=== PATIENT | male | born 1965 | race Caucasian/White ===

== ENCOUNTER → 2024-03-13 | Outpatient (CLI) | payer BC, SELFPAY ==
[2024-03-13 12:05] LABS: Basophils # (Auto) 0.1 Thou/mm3 (0.0-0.2); Basophils % (Auto) 2 % (0-2.5); Eosinophils # (Auto) 0.3 Thou/mm3 (0.0-0.5); Eosinophils % (Auto) 5 % (0-10); Hematocrit 48.4 % (41.0-53.0); Hemoglobin 16.9 g/dL (13.5-16.0); Immature Granulocytes % (Auto) 0 % (0-0); Immature Granulocytes Auto 0.02 Thou/mm3 (0.00-0.00); Lymphocytes # (Auto) 1.7 Thou/mm3 (1.0-4.8); Lymphocytes % (Auto) 32 % (10-50); Mean Corpuscular HGB Conc 34.9 g/dl (31.0-37.0); Mean Corpuscular Hemoglobin 31.9 pg (25.0-35.0); Mean Corpuscular Volume 92 fL (80-100); Monocytes # (Auto) 0.5 Thou/mm3 (0.0-0.8); Monocytes % (Auto) 9 % (0-12); Neutrophils # (Auto) 2.8 Thou/mm3 (1.8-7.7); Neutrophils % (Auto) 52 % (37-80); Nucleated Red Blood Cell % 0 /100 WBC (0); Platelet Count 258 Thou/mm3 (140-440); RDW Standard Deviation 48.6 fL (35.1-43.9); Red Blood Count 5.29 Miln/mm3 (4.50-5.90); White Blood Count 5.2 Thou/mm3 (3.8-10.6)
[2024-03-13 12:20] LABS: Glucose Estimated Average 94 mg/dL (80-131); Hemoglobin A1C 4.9 % Hgb (4.8-6.0)
[2024-03-13 12:30] LABS: Alanine Aminotransferase 49 U/L (10-49); Albumin, Serum 4.6 gm/dL (3.5-5.0); Albumin/Globulin Ratio 2.2 (1.2-2.2); Alkaline Phosphatase 80 U/L (46-116); Anion Gap 4 (7-16); Aspartate Amino Transferase 33 U/L (0-34); BUN/Creatinine Ratio 12 Ratio (12-20); Bilirubin,Total 0.7 mg/dL (0.3-1.2); Blood Urea Nitrogen 12 mg/dL (9-23); Calcium 9.9 mg/dL (8.3-10.6); Calcium (Corrected) 9.9 mg/dL (8.5-10.1); Carbon Dioxide 28.5 mMol/L (20.0-31.0); Cardiac Risk Estimate 3.8 RATIO (4.0-6.7); Chloride 106 mMol/L (98-107); Cholesterol 188 mg/dL (132-200); Free T4 (Free Thyroxine) 1.14 ng/dL (0.89-1.76); Globulin 2.1 gm/dL (2.3-3.5); Glucose 72 mg/dL (74-106); HDL Cholesterol 49 mg/dL (40-60); LDL Cholesterol,Calculated 108 mg/dL (0-130); Osmolality,Calculated 274 (275-295); Potassium 4.1 mMol/L (3.4-5.1); Sodium 138 mMol/L (136-145); Thyroid Stimulating Hormone 0.98 uIU/mL (0.55-4.78); Total Protein 6.7 gm/dL (5.7-8.2); Triglycerides 153 mg/dL (30-150); eGFR > 60 See Note
[2024-03-23 07:23] LABS: SHBG 39 nmol/L (22-77); Testosterone, Bioavailable 64.2 ng/dL (110.0-575.0); Testosterone, Free 34.9 pg/mL (46.0-224.0); Testosterone,Total 307 ng/dL (250-1100)
== END | disposition home or self-care (01) ==
LOC: COPL 11:12
PROVIDERS: PCP Nurse Practitioner; Referring Provider Nurse Practitioner; Visit Provider Nurse Practitioner
DX: I10 Essential (primary) hypertension (principal); E29.1 Testicular hypofunction; R53.83 Other fatigue; R73.09 Other abnormal glucose
CPT/HCPCS: 36415; 80053; 80061; 82040; 83036; 84153; 84270; 84403; 84439; 84443; 85025

== ENCOUNTER → 2024-08-14 | Outpatient (CLI) | payer BC, SELFPAY ==
--- NOTE | 2024-08-14 16:18 | XR_ITS ---
Examination: Lumbar spine, 5 views Technique: Lumbar spine AP, lateral, coned lateral lower lumbar spine, bilateral obliques 5 views Exam date and time: August 14, 2024 1821 hrs. Indications: Low back pain beginning several years ago. Findings: Adequate alignment lumbar vertebral bodies on the lateral view No lumbar fracture Moderate disc narrowing L4-L5 Advanced disc narrowing L5-S1 No spondylolisthesis Impression: Advanced degenerative disc disease L5-S1
== END | disposition home or self-care (01) ==
PROVIDERS: PCP Nurse Practitioner; Referring Provider Nurse Practitioner; Visit Provider Nurse Practitioner
DX: M51.379 Other intervertebral disc degeneration, lumbosacral region without mention of lumbar back pain or lower extremity pain (principal)
CPT/HCPCS: 72110

== ENCOUNTER → 2025-02-03 | Outpatient (CLI) | payer BC, SELFPAY ==
--- NOTE | 2025-02-03 10:30 | XR_ITS ---
Examination: CT chest, without contrast. 2-D sagittal reconstructions. 2-D coronal reconstructions. 3-D reconstructions. Date and time of exam: February 13, 2025 10:52 a.m. INDICATIONS: Nicotine dependence coughing congestion 10 years, smoking history 10 years, low dose screening study CTDI: vol (mGy): 14.6 DLP: (mGycm): 594 Technique: Multiple 1.25 mm axial sections of the high-resolution noncontrast images of the thorax have been obtained. 2-D sagittal and coronal reconstructions have been obtained. 3-D reconstructions have been obtained. Low dose protocols were performed. One or more of the following dose reduction techniques were used; automated exposure control, adjustment of the mA and/or KV according to patient size, use of iterative reconstruction technique. Findings: Mild aneurysmal dilatation ascending thoracic aorta, AP dimension 4.2 cm Pulmonary artery segments are not enlarged. No paratracheal tracheobronchial or bronchopulmonary adenopathy No pneumonia, pulmonary edema, pleural disease Fatty infiltration throughout the liver, no focal liver or splenic lesions No pancreatic mass Absent gallbladder Moderate osteopenia IMPRESSION: Mild aneurysmal dilatation ascending thoracic aorta Negative for pulmonary artery hypertension No mediastinal lymphadenopathy. No pneumonia, pulmonary edema, pleural disease or pulmonary nodules
== END | disposition home or self-care (01) ==
PROVIDERS: PCP Nurse Practitioner; Referring Provider Nurse Practitioner; Visit Provider Nurse Practitioner
DX: I71.21 Aneurysm of the ascending aorta, without rupture (principal)
CPT/HCPCS: 71271

== ENCOUNTER → 2025-02-12 | Outpatient (CLI) | payer BC, SELFPAY ==
--- NOTE | 2025-02-12 08:57 | XR_ITS ---
EXAMINATION: Ultrasound abdominal aorta TECHNIQUE: Grayscale sonographic images abdominal aorta and iliac arteries Date and time: February 12, 2025, 0912 hours INDICATIONS: Smoking history 20 years, CT examination February 03, 2025 aneurysmal dilatation ascending thoracic aorta 4.2 cm FINDINGS: Transverse dimension proximal aorta 2.4 cm mid aorta 2.3 cm distal aorta 2.2 cm right iliac 1.5 cm left iliac 1.3 cm IMPRESSION: Negative for bowel aortic aneurysm
== END | disposition home or self-care (01) ==
PROVIDERS: PCP Nurse Practitioner; Referring Provider Nurse Practitioner; Visit Provider Nurse Practitioner
DX: F17.210 Nicotine dependence, cigarettes, uncomplicated (principal)
CPT/HCPCS: 76770

== ENCOUNTER 2025-03-24 08:36 | Emergency (ER) | payer BC, SELFPAY ==
[2025-03-24 08:46] VITALS: PULSE 120; O2SAT 99; BMI 28.5
[2025-03-24 08:57] VITALS: BP 114/86; PULSE 118; RESP 18; TEMP 36.9; O2SAT 96
--- NOTE | 2025-03-24 08:59 | EKG_ITS ---
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
--- NOTE | 2025-03-24 09:07 | PD.EDCHEST ---
ED Chest Pain RME/HPI General Chief Complaint: Chest Pain Stated Complaint: chest pain Time Seen by Provider: 03/24/25 08:50 Arrival date/time: 03/24/25 08:36 Limitations: no limitations RME / HPI RME / HPI narrative: 59 year old male with history of hypertension, anxiety, chronic pain presents to the ED BIBA from home for evaluation of substernal and left-sided chest pain beginning at midnight today. Described as a soreness sensation, rated as moderate. Accompanied by elevated heart rate and nausea. Reports with elevated HR in the past, he takes a small dose of Valium which provides relief. However, noted HR did not improve and chest pain remained. Per medics, on scene the patients HR was 120-130s on telemetry. Was given Aspirin, Nitro sublingual, Nitro paste, Zofran with minimal relief. Denies any leg swelling, jaw pain, or shoulder pain. Denies any diarrhea or blood in stool. Patient additionally reports he and some friends drove several hours down to [facility] for a golf tournament and had a ground level mechanical fall Saturday evening. Denied having any chest pain or shortness of breath after the fall. States he was able to play golf yesterday and yesterday they drove from [facility] back home with no complications or pain. Related Data Home Medications ?Medication ?Instructions ?Recorded ?Confirmed albuterol sulfate 90 mcg/actuation 2 puff inhalation QDAY PRN 05/15/21 12/15/21 aerosol inhaler Shortness Of Breath Or Wheezing aspirin 81 mg tablet,delayed 81 mg PO QDAY 05/15/21 12/15/21 release azelastine 137 mcg (0.1 %) nasal 1 spray intranasal QDAY 05/15/21 12/15/21 spray lisinopril 20 mg tablet 20 mg PO QDAY 05/15/21 12/15/21 nifedipine 30 mg tablet,extended 30 mg PO QDAY 05/15/21 12/15/21 release 24 hr omeprazole 40 mg capsule,delayed 40 mg PO BID 05/15/21 12/15/21 release fluticasone propionate 110 1 puff inhalation QDAY 12/18/21 12/18/21 mcg/actuation HFA aerosol inhaler (Flovent HFA) hydrocodone 10 mg-acetaminophen 1 tab PO Q6HR PRN Pain 12/18/21 12/18/21 325 mg tablet Held on 12/18/21. Instructions: Resume on 12/19/21. HOLD FOR TODAY. RESUME MED TOMORROW 12/19/21 Allergies Allergy/AdvReac Type Severity Reaction Status Date / Time erythromycin base AdvReac upset Verified 12/18/21 14:06 stomach Review of Systems Review of Systems Systems Reviewed: All systems reviewed, normal except as documented Past Medical History Past Medical History CARDIAC: Positive Cardiac Disorders, Hypercholesterolemia and Hypertension RESPIRATORY: Positive Asthma and Sleep Apnea GASTROINTESTINAL: Positive Gastrointestinal Disorders and Gastroesophageal Reflux Disease GENITOURINARY: Positive Kidney Stones OTHER HISTORY: Positive Shingles, Anesthesia Reactions and Chicken Pox Surgical History SURGICAL: Positive Abdominal Surgery, Bowel Surgery and Vasectomy Social History SMOKING STATUS: Heavy (> 1 pack/day) ED Exam General Limitations: Present no limitations General appearance: Present alert and in no apparent distress Head Head exam: Present other (There is an abrasion on the bride of nose and left cheek) Eye Eye exam: Present normal appearance, PERRL and EOMI ENT ENT exam: Present normal exam, normal oropharynx and mucous membranes moist Neck Neck exam: Present full ROM, trachea midline and other (minimal tenderness to the lateral neck ) Chest Chest inspection: Present normal inspection and symmetric chest wall rise; Absent tenderness Respiratory Respiratory exam: Present normal lung sounds bilaterally Cardiovascular Cardiovascular exam: Present regular rate, normal rhythm and normal heart sounds Abdominal Exam Abdominal exam: Present soft and normal bowel sounds; Absent distention, tenderness, guarding, rebound or rigidity Extremities Exam Extremities exam: Present normal inspection, full ROM and other (No lower extremity edema ) Back Exam Back exam: Present normal inspection and full ROM Neurological Exam Neurological exam: Present alert, oriented X3 and CN II-XII intact Psychiatric Psychiatric exam: Present normal affect and normal mood Skin Skin exam: Present warm, dry, intact and normal color Course Quality Measures none Orders Category Date Time Status CT Screening NOW Care 03/24/25 09:48 Completed EKG (ED ONLY) *Do not use* NOW Care 03/24/25 08:[address] angio chest abdomen pelvis Stat Exams 03/24/25 09:[address] cervical spine wo con Stat Exams 03/24/25 09:[address] head/brain wo con Stat Exams 03/24/25 09:47 Completed CXR [XR chest 1V] Stat Exams 03/24/25 09:47 Completed EKG (ED Only) Stat Exams 03/24/25 08:59 Draft CBC Stat Lab 03/24/25 10:19 Completed CMP [Comprehensive Metabolic Panel] Stat Lab 03/24/25 10:19 Completed Drug Screen,Urine Stat Lab 03/24/25 11:40 Completed Free T4 (Free Thyroxine) Stat Lab 03/24/25 10:19 Completed Lipase Stat Lab 03/24/25 10:19 Completed TSH [Thyroid Stimulating Hormone] Stat Lab 03/24/25 10:19 Completed Troponin I Stat Lab 03/24/25 10:19 Completed Troponin I Stat Lab 03/24/25 12:09 Completed Morphine* Inj Med 03/24/25 09:49 Discontinued 2 mg IVP STAT STA Ringers Lactated 1000 ml [Lactated Ringers] 1,000 ml Med 03/24/25 09:49 Discontinued IV 999 mls/hr TET,DIP/PERT AC (Adult)-Tdap [Boostrix Adult (Tdap) Med 03/24/25 09:48 Discontinued Vacc] 0.5 ml IMI .ONCE ONE Vital Signs Vital signs: Vital Signs Temperature 98.5 F 03/24/25 08:57 Pulse Rate 118 H 03/24/25 08:57 Respiratory Rate 18 03/24/25 08:57 Blood Pressure 114/86 H 03/24/25 08:57 Pulse Oximetry (%) 96 03/24/25 08:57 Oxygen Delivery Method Room Air 03/24/25 08:57 Pulse ox is 96% on room air which is adequate. Chest Pain MDM Narrative MDM Narrative:: Patient is a 59-year-old male with medical history notable for hypertension, GERD, this in the emergency department concerns for chest pain, feeling off. Vital signs and exam as listed. Concern for ACS arrhythmia electrolyte abnormality viral syndrome pneumonia pulmonary embolus dissection among others. Patient also fell and hit his head a couple days ago, has an abrasion. Patient is GCS 15, no focal neurodeficits, no concern for intracranial trauma. Ordered CT of the brain, cervical spine angio chest abdomen pelvis. EKG and chest x-ray offered medication for symptom relief. Labs without acute hematologic or significant metabolic abnormality patient does have an AST of 51 ALT of 52, lipase not elevated thyroid studies unremarkable, troponin not elevated. Will repeat the patient's troponin. CT brain and cervical spine without any acute abnormalities. Chest x-ray with bibasilar opacities that could represent atelectasis versus early pneumonia. Patient has not had a cough shortness of breath or fever less likely pneumonia. CT angio of the chest abdomen pelvis showed minimal aneurysmal dilatation of the ascending aorta 4 cm. Patient does not have any filling defects, no pneumonia pulmonary edema or pulmonary disease. Patient does have severe diffuse fatty liver. Patient has minimal perinephric fat stranding, 4 mm fat-containing umbilical hernia, minimal small bowel ileus, minimal urinary bladder thickening. Patient without dysuria less likely urinary tract infection. On reevaluation heart rate now in the 70s, patient hemodynamically stable not in distress. Repeat troponin not elevated. 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 Patient data External records reviewed:: [facility] previous records and EMS form Clinical information provided by:: patient and EMS Social determinants that could affect healthcare access:: none Patient has the following chronic illnesses:: hypertension, anxiety, chronic pain How is presenting disease/condition affected by chronic disease/condition?: exacerbated by Evaluation data The following diagnostics were reviewed and interpreted by me:: lab results, radiology exam(s) and EKG tracing(s) Lab and/or radiology exams considered but not ordered:: None Interpretation Summary: Ordering Physician: Kylie Moreno MD Date of Service: 03/24/25 Procedure(s): CT cervical spine wo con Accession Number(s): [id number] cc: Martinez Verduzco MD; Deja Valera [facility]; Kylie Moreno MD~ EXAMINATION: CT head/brain wo con, CT cervical spine wo con ORDERING PROVIDER: Kylie Moreno MD HISTORY: Pain to the front of the head and back of the neck status post fall 2 days prior. TECHNIQUE: Volumetric helical CT scanner was used in the non-contrast imaging acquisition of the head and cervical spine with reformats. 2D and 3D reformats were created on a separate workstation and submitted for interpretation. Institutional dose reduction protocols were utilized. RADIATION DOSE: DLP 1583 mGy-cm COMPARISON: 02/03/2025, CT chest. 07/31/2010 sinus series. 12/14/2003, MRI brain. FINDINGS: HEAD: BRAIN: No acute intracranial hemorrhage, mass effect, or midline shift. Calcifications of the falx cerebri. ISABEL-WHITE DIFFERENTIATION: Preserved. EXTRA-AXIAL SPACES: No abnormal collection. SULCI: Normal. VENTRICLES: Normal. BASAL CISTERNS: Normal. VESSELS: No hyperdense vessel sign. Mild to moderate vascular calcifications. DURAL VENOUS SINUSES: Symmetric attenuation. POSTERIOR FOSSA: Normal. MASTOID AIR CELLS: Clear. PARANASAL SINUSES: Clear. ORBITS: Normal. BONES: Normal. SCALP: Normal. C-SPINE: BONES: No fracture or focal lesion. JOINT/DISC SPACES: Moderate degenerative disc C5-C6 and C6-C7. Moderate uncovertebral hypertrophy predominantly right-sided at C5-C6 and C6-C7. ALIGNMENT: Trace retrolisthesis C5-C6. SOFT TISSUES: Unremarkable. No prevertebral swelling. OTHER: Azygos lobe variant. Moderate calcifications of the bilateral carotid bulbs and proximal internal carotid arteries. IMPRESSION: 1. No acute intracranial hemorrhage, mass effect, or midline shift. 2. No acute cervical spine fracture. Dictated By: Martinez Verduzco MD Signed By: <Electronically signed by Martinez Verduzco MD in OV> 03/24/25 1045 Ordering Physician: Kylie Moreno MD Date of Service: 03/24/25 Procedure(s): XR chest 1V Accession Number(s): [id number] cc: Martinez Verduzco MD; Deja Valera; Kylie Moreno MD~ EXAMINATION: XR chest 1V ORDERING PROVIDER: Kylie Moreno MD HISTORY: chest pain TECHNIQUE: Single portable AP radiograph of the chest. COMPARISON: 02/03/2025, CT chest. FINDINGS: Lines and Tubes: None. Lungs: Hypoinflated lungs. Bibasilar opacities. Mildly increased interstitial markings. Azygos lobe variant. Pleura: No pneumothorax or pleural effusion. Cardiomediastinal Silhouette: Calcifications aortic arch. Soft Tissues/Bones: Right upper quadrant surgical clips. Mild bony degenerative changes commensurate with age. IMPRESSION: 1. Bibasilar opacities may represent atelectasis or early infection in the proper clinical setting 2. Bronchovascular crowding versus mild positive fluid balance. Dictated By: Martinez Verduzco MD Signed By: <Electronically signed by Martinez Verduzco MD in OV> 03/24/25 1032 Ordering Physician: Kylie Moreno MD Date of Service: 03/24/25 Procedure(s): CT angio chest abdomen pelvis Accession Number(s): [id number] cc: Deja Valera; Sahil Frazier MD; Kylie Moreno MD~ Examination: CTA chest, with intravenous contrast. CTA abdomen, with intravenous contrast. CTA pelvis, with intravenous contrast. 2-D sagittal and coronal reconstructions. 3-D reconstructions. Date and time of exam: March 24, 2025, 1212 hours INDICATIONS: Chest pain shortness of breath today CTDI vol (mgy) 26.7 DLP (MGycm) 1234 Technique: Multiple CTA images, 2.0 mm slice thickness, obtained chest, abdomen, pelvis, with the high-resolution 64 slice scanner. 100 cc Isovue-370 is administered intravenously. Sagittal and coronal 2-D reconstructions are obtained. 3-D reconstructions, angiographic images are obtained. 3-D postprocessing, including vascular maximum intensity projections. Low dose protocols were performed. One or more of the following dose reduction techniques were used; automated exposure control, adjustment of the mA and/or KV according to patient size, use of iterative reconstruction technique. Findings: Minimal aneurysmal dilatation ascending thoracic aorta, AP dimension 4.0 cm Pulmonary artery opacification is poor, no filling defects noted No paratracheal or tracheobronchial or bronchopulmonary adenopathy No pneumonia or pulmonary edema or pleural disease Severe diffuse fatty infiltration throughout the liver Absent gallbladder Spleen not enlarged No pancreatic or adrenal mass Perinephric stranding no hydronephrosis Mildly fluid distended small bowel loops in the upper abdomen image 199 Abdominal aorta is not enlarged No bowel obstruction 4 mm fat-containing umbilical hernia No pericecal inflammatory change No diverticulitis Normal seminal vesicles Contracted urinary bladder minimal urinary bladder wall thickening No significant prostatomegaly Advanced degenerative disc disease L5-S1 IMPRESSION: Minimal aneurysmal dilatation ascending thoracic aorta, AP dimension 4.0 cm Pulmonary artery opacification is poor, no filling defects No pneumonia pulmonary edema or pleural disease Severe diffuse fatty infiltration throughout the liver Absent gallbladder No common bile duct or common hepatic duct stones Negative for pancreatitis Minimal perinephric stranding 4 mm fat-containing umbilical hernia Minimal small bowel ileus No bowel obstruction Minimal urinary bladder wall thickening, cystitis included in the differential Dictated By: Sahil Frazier MD Signed By: <Electronically signed by Sahil Frazier MD in OV> 03/24/25 1248 Ordering Physician: Kylie Moreno MD Date of Service: 03/24/25 Procedure(s): CT head/brain wo con Accession Number(s): [id number] cc: Martinez Verduzco MD; Deja Valera; Kylie Moreno MD~ EXAMINATION: CT head/brain wo con, CT cervical spine wo con ORDERING PROVIDER: Kylie Moreno MD HISTORY: Pain to the front of the head and back of the neck status post fall 2 days prior. TECHNIQUE: Volumetric helical CT scanner was used in the non-contrast imaging acquisition of the head and cervical spine with reformats. 2D and 3D reformats were created on a separate workstation and submitted for interpretation. Institutional dose reduction protocols were utilized. RADIATION DOSE: DLP 1583 mGy-cm COMPARISON: 02/03/2025, CT chest. 07/31/2010 sinus series. 12/14/2003, MRI brain. FINDINGS: HEAD: BRAIN: No acute intracranial hemorrhage, mass effect, or midline shift. Calcifications of the falx cerebri. ISABEL-WHITE DIFFERENTIATION: Preserved. EXTRA-AXIAL SPACES: No abnormal collection. SULCI: Normal. VENTRICLES: Normal. BASAL CISTERNS: Normal. VESSELS: No hyperdense vessel sign. Mild to moderate vascular calcifications. DURAL VENOUS SINUSES: Symmetric attenuation. POSTERIOR FOSSA: Normal. MASTOID AIR CELLS: Clear. PARANASAL SINUSES: Clear. ORBITS: Normal. BONES: Normal. SCALP: Normal. C-SPINE: BONES: No fracture or focal lesion. JOINT/DISC SPACES: Moderate degenerative disc C5-C6 and C6-C7. Moderate uncovertebral hypertrophy predominantly right-sided at C5-C6 and C6-C7. ALIGNMENT: Trace retrolisthesis C5-C6. SOFT TISSUES: Unremarkable. No prevertebral swelling. OTHER: Azygos lobe variant. Moderate calcifications of the bilateral carotid bulbs and proximal internal carotid arteries. IMPRESSION: 1. No acute intracranial hemorrhage, mass effect, or midline shift. 2. No acute cervical spine fracture. Dictated By: Martinez Verduzco MD Signed By: <Electronically signed by Martinez Verduzco MD in OV> 03/24/25 1045 Medications / Prescriptions Medications or Prescriptions considered but not ordered:: None Medication administrations:: Medication Administration History Discontinued Medications Diphtheria/Tetanus/Acell Pertussis (Diphth,Pertuss(Acell),Tet Vac 0.5 Ml Syr- Adult) 0.5 ml IMi .ONCE ONE Stop: 03/24/25 09:49 Last Admin: 03/24/25 11:01 Dose: 0.5 ml Documented By: JAMIR Lactated Ringer's (Lactated Ringers) 1,000 mls @ 999 mls/hr IV .Q1H1M ONE Stop: 03/24/25 10:49 Last Infusion: 03/24/25 11:30 Dose: Infused Documented By: Admin: 03/24/25 10:26 Dose: 999 mls/hr Documented By: JAMIR Morphine Sulfate (Morphine Sulf Inj 4 Mg/Ml Vial) 2 mg IVP STAT STA Stop: 03/24/25 09:50 Last Admin: 03/24/25 10:25 Dose: 2 mg Documented By: JAMIR See above Consultations Consultation(s) initiated? (list below): No Diagnosis Most likely diagnosis given after review of the tests above:: chest pain atrial tachycardia acute head trauma abrasion of face Admission Indicated Admission indicated?: not indicated Explain why admission is indicated or not indicated:: With no condition needing emergent intervention, there was no indication for admission. Admission Request Was there a request for admission?: No Disposition Plan Disposition Plan: Discharge Discharge Attestation Discharge Attestation: The patient and all family members were given an opportunity to ask questions and understood the discharge instructions. Discharge instructions specifically effects, indications for sooner follow up or return to the emergency department, and the expected course of current diagnosis. Patient condition: Stable Discharge Plan Plan Patient Disposition: HOME (Self Care) Prescriptions/Referrals Prescriptions/Med Rec: No Action nifedipine 30 mg tablet extended release 24hr 30 mg PO QDAY Patient Comments: TAKE ONE TABLET BY MOUTH EVERY DAY lisinopril 20 mg tablet 20 mg PO QDAY omeprazole 40 mg capsule,delayed release(DR/EC) 40 mg PO BID Patient Comments: TAKE ONE CAPSULE BY MOUTH EVERY DAY FOR GASTRITIS AND HEARTBURN aspirin 81 mg tablet,delayed release (DR/EC) 81 mg PO QDAY Patient Comments: TAKE ONE TABLET BY MOUTH EVERY DAY FOR THE HEART azelastine 137 mcg (0.1 %) aerosol,spray 1 spray INTRANASAL QDAY Patient Comments: INSTILL ONE SPRAYS IN EACH NOSTRIL TWICE DAILY albuterol sulfate 90 mcg/actuation HFA aerosol inhaler 2 puff INHALATION QDAY PRN (Reason: Shortness Of Breath Or Wheezing) Patient Comments: INHALE TWO PUFFS BY MOUTH EVERY 4 HOURS NEEDED SHORTNESS OF BREATH hydrocodone-acetaminophen 10-325 mg tablet 1 tab PO Q6HR PRN (Reason: Pain) Patient Comments: TAKE ONE TABLET BY MOUTH EVERY DAY NEEDED FOR PAIN fluticasone propionate [Flovent HFA] 110 mcg/actuation HFA aerosol inhaler 1 puff INHALATION QDAY Patient Comments: INHALE ONE PUFFS TWICE DAILY Referrals: Deja Valera FNP [Primary Care Provider] - In 1 week Problem List Clinical Impression: Chest pain, Atrial tachycardia, Acute head trauma, Abrasion of face Patient/Caregiver Discharge Instructions Education Materials: ED Abrasions, ED Chest Pain, Uncertain Cause Additional Instructions: Your labs did not identify any acute hematologic or metabolic abnormality, your cardiac enzyme on 2 separate assessments was normal. Your CT scan of your brain and cervical spine were normal. The CT scan of your chest abdomen pelvis did identify your 4 cm thoracic aneurysm however no evidence of dissection. It did show that you might have slower bowel transit, I recommend that you hydrate well, and use a bowel regimen including MiraLAX or fiber supplement to help with bowel transit. 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 I am glad that you are feeling better and that your heart rate has since improved following IV fluids. If you have worsening symptoms or any other symptom of concern please return to the emergency department Print Language: Lithuanian Stand Alone Forms: [employer] Award Info., Patient Portal Info Letter
--- NOTE | 2025-03-24 09:47 | XR_ITS ---
Examination: CTA chest, with intravenous contrast. CTA abdomen, with intravenous contrast. CTA pelvis, with intravenous contrast. 2-D sagittal and coronal reconstructions. 3-D reconstructions. Date and time of exam: March 24, 2025, 1212 hours INDICATIONS: Chest pain shortness of breath today CTDI vol (mgy) 26.7 DLP (MGycm) 1234 Technique: Multiple CTA images, 2.0 mm slice thickness, obtained chest, abdomen, pelvis, with the high-resolution 64 slice scanner. 100 cc Isovue-370 is administered intravenously. Sagittal and coronal 2-D reconstructions are obtained. 3-D reconstructions, angiographic images are obtained. 3-D postprocessing, including vascular maximum intensity projections. Low dose protocols were performed. One or more of the following dose reduction techniques were used; automated exposure control, adjustment of the mA and/or KV according to patient size, use of iterative reconstruction technique. Findings: Minimal aneurysmal dilatation ascending thoracic aorta, AP dimension 4.0 cm Pulmonary artery opacification is poor, no filling defects noted No paratracheal or tracheobronchial or bronchopulmonary adenopathy No pneumonia or pulmonary edema or pleural disease Severe diffuse fatty infiltration throughout the liver Absent gallbladder Spleen not enlarged No pancreatic or adrenal mass Perinephric stranding no hydronephrosis Mildly fluid distended small bowel loops in the upper abdomen image 199 Abdominal aorta is not enlarged No bowel obstruction 4 mm fat-containing umbilical hernia No pericecal inflammatory change No diverticulitis Normal seminal vesicles Contracted urinary bladder minimal urinary bladder wall thickening No significant prostatomegaly Advanced degenerative disc disease L5-S1 IMPRESSION: Minimal aneurysmal dilatation ascending thoracic aorta, AP dimension 4.0 cm Pulmonary artery opacification is poor, no filling defects No pneumonia pulmonary edema or pleural disease Severe diffuse fatty infiltration throughout the liver Absent gallbladder No common bile duct or common hepatic duct stones Negative for pancreatitis Minimal perinephric stranding 4 mm fat-containing umbilical hernia Minimal small bowel ileus No bowel obstruction Minimal urinary bladder wall thickening, cystitis included in the differential
--- NOTE | 2025-03-24 09:47 | XR_ITS ---
EXAMINATION: CT head/brain wo con, CT cervical spine wo con ORDERING PROVIDER: Kylie Moreno MD HISTORY: Pain to the front of the head and back of the neck status post fall 2 days prior. TECHNIQUE: Volumetric helical CT scanner was used in the non-contrast imaging acquisition of the head and cervical spine with reformats. 2D and 3D reformats were created on a separate workstation and submitted for interpretation. Institutional dose reduction protocols were utilized. RADIATION DOSE: DLP 1583 mGy-cm COMPARISON: 02/03/2025, CT chest. 07/31/2010 sinus series. 12/14/2003, MRI brain. FINDINGS: HEAD: BRAIN: No acute intracranial hemorrhage, mass effect, or midline shift. Calcifications of the falx cerebri. ISABEL-WHITE DIFFERENTIATION: Preserved. EXTRA-AXIAL SPACES: No abnormal collection. SULCI: Normal. VENTRICLES: Normal. BASAL CISTERNS: Normal. VESSELS: No hyperdense vessel sign. Mild to moderate vascular calcifications. DURAL VENOUS SINUSES: Symmetric attenuation. POSTERIOR FOSSA: Normal. MASTOID AIR CELLS: Clear. PARANASAL SINUSES: Clear. ORBITS: Normal. BONES: Normal. SCALP: Normal. C-SPINE: BONES: No fracture or focal lesion. JOINT/DISC SPACES: Moderate degenerative disc C5-C6 and C6-C7. Moderate uncovertebral hypertrophy predominantly right-sided at C5-C6 and C6-C7. ALIGNMENT: Trace retrolisthesis C5-C6. SOFT TISSUES: Unremarkable. No prevertebral swelling. OTHER: Azygos lobe variant. Moderate calcifications of the bilateral carotid bulbs and proximal internal carotid arteries. IMPRESSION: 1. No acute intracranial hemorrhage, mass effect, or midline shift. 2. No acute cervical spine fracture.
--- NOTE | 2025-03-24 09:47 | XR_ITS ---
EXAMINATION: XR chest 1V ORDERING PROVIDER: Kylie Moreno MD HISTORY: chest pain TECHNIQUE: Single portable AP radiograph of the chest. COMPARISON: 02/03/2025, CT chest. FINDINGS: Lines and Tubes: None. Lungs: Hypoinflated lungs. Bibasilar opacities. Mildly increased interstitial markings. Azygos lobe variant. Pleura: No pneumothorax or pleural effusion. Cardiomediastinal Silhouette: Calcifications aortic arch. Soft Tissues/Bones: Right upper quadrant surgical clips. Mild bony degenerative changes commensurate with age. IMPRESSION: 1. Bibasilar opacities may represent atelectasis or early infection in the proper clinical setting 2. Bronchovascular crowding versus mild positive fluid balance.
[2025-03-24] MEDS: MORPHINE SULF INJ 4 MG/ML VIAL 2 MG IVP (10:25)
[2025-03-24] MEDS: RINGERS LACTATED 1000 ML 1,000 ML 999 ML IV (10:26)
[2025-03-24 10:30] LABS: Basophils # (Auto) 0.1 Thou/mm3 (0.0-0.2); Basophils % (Auto) 1 % (0-2.5); Eosinophils # (Auto) 0.1 Thou/mm3 (0.0-0.5); Eosinophils % (Auto) 1 % (0-10); Hematocrit 45.9 % (41.0-53.0); Hemoglobin 16.4 g/dL (13.5-16.0); Immature Granulocytes Auto 0.02 Thou/mm3 (0.00-0.00); Lymphocytes # (Auto) 1.7 Thou/mm3 (1.0-4.8); Lymphocytes % (Auto) 23 % (10-50); Mean Corpuscular HGB Conc 35.7 g/dl (31.0-37.0); Mean Corpuscular Hemoglobin 31.7 pg (25.0-35.0); Mean Corpuscular Volume 89 fL (80-100); Monocytes # (Auto) 0.5 Thou/mm3 (0.0-0.8); Monocytes % (Auto) 6 % (0-12); Neutrophils # (Auto) 5.3 Thou/mm3 (1.8-7.7); Neutrophils % (Auto) 69 % (37-80); Nucleated Red Blood Cell # 0.00 Thou/mm3 (0.00-0.00); Nucleated Red Blood Cell % 0 /100 WBC (0); Platelet Count 238 Thou/mm3 (140-440); RDW Standard Deviation 40.8 fL (35.1-43.9); Red Blood Count 5.18 Miln/mm3 (4.50-5.90); White Blood Count 7.7 Thou/mm3 (3.8-10.6)
[2025-03-24 10:46] VITALS: BP 109/83; PULSE 112; RESP 15; TEMP 36.9; O2SAT 95
[2025-03-24 10:50] LABS: Alanine Aminotransferase 52 U/L (10-49); Albumin, Serum 4.8 gm/dL (3.5-5.0); Albumin/Globulin Ratio 2.3 (1.2-2.2); Alkaline Phosphatase 71 U/L (46-116); Anion Gap 8 (7-16); Aspartate Amino Transferase 51 U/L (0-34); BUN/Creatinine Ratio 10 Ratio (12-20); Bilirubin,Total 0.8 mg/dL (0.3-1.2); Blood Urea Nitrogen 9 mg/dL (9-23); Calcium 9.0 mg/dL (8.3-10.6); Calcium (Corrected) 9.0 mg/dL (8.5-10.1); Carbon Dioxide 26.2 mMol/L (20.0-31.0); Chloride 105 mMol/L (98-107); Creatinine (Component) 0.9 mg/dL (0.6-1.3); Estimated Creatinine Clearance 108.4 mL/min (>60); Free T4 (Free Thyroxine) 1.12 ng/dL (0.89-1.76); Globulin 2.1 gm/dL (2.3-3.5); Glucose 93 mg/dL (74-106); Lipase 25 U/L (12-53); Osmolality,Calculated 276 (275-295); Potassium 4.4 mMol/L (3.4-5.1); Sodium 139 mMol/L (136-145); Thyroid Stimulating Hormone 0.72 uIU/mL (0.55-4.78); Total Protein 6.9 gm/dL (5.7-8.2); Troponin I < 0.020 ng/mL (0.0-0.045); eGFR > 60 See Note
[2025-03-24] MEDS: DIPHTH,PERTUSS(ACELL),TET VAC 0.5 ML SYR- ADULT IMi (11:01)
[2025-03-24 12:27] LABS: Amphetamine/Methamp Scrn,U Negative (Negative); Barbiturate Screen,Urine Negative (Negative); Benzodiazepines Screen,Urine Positive (Negative); Benzoylecgonine Screen, Ur Negative (Negative); Fentanyl Screen,Urine Negative (Negative); Opiate Screen,Urine Positive (Negative); THC Screen,Urine Negative (Negative)
[2025-03-24 12:45] LABS: Troponin I < 0.020 ng/mL (0.0-0.045)
[2025-03-24 14:13] VITALS: BP 114/73; PULSE 98; RESP 16; TEMP 37.1; O2SAT 95
[2025-03-24 16:20] VITALS: BP 111/78; PULSE 89; RESP 16; TEMP 36.7; O2SAT 96
== END 2025-03-24 16:31 | disposition home or self-care (01) ==
PROVIDERS: Emergency Provider Emergency Medicine; PCP Nurse Practitioner
DX: S00.81XA Abrasion of other part of head, initial encounter (principal); F41.9 Anxiety disorder, unspecified; G89.29 Other chronic pain; I10 Essential (primary) hypertension; W18.30XA Fall on same level, unspecified, initial encounter; Z79.51 Long term (current) use of inhaled steroids; I47.19 Other supraventricular tachycardia
CPT/HCPCS: 36415; 70450; 71045; 71275; 72125; 74174; 80053; 80307; 83690; 84439; 84443; 84484; 85025; 90471; 90715; 93005; 96361; 96374; 99284; A4649; J2270; J7120; Q9967